=== PATIENT | female | born 1965 | race Caucasian/White ===

== ENCOUNTER 2023-07-20 22:49 | Emergency (ER) | payer BC ==
[2023-07-20 22:56] VITALS: BP 129/75; PULSE 67; RESP 16; TEMP 98.1; BMI 25.0
[2023-07-21] MEDS ORDERED: FAMOTIDINE 20 MG/50 ML IVPB 20 MG/50 ML MG IVPB ONE ×2 (00:35→00:38)
[2023-07-21 00:41] LABS: BASO % 1.4 % (0-2.0); EOS % 3.3 % (0-4.5); HEMATOCRIT 39.5 % (32.4-45.2); HEMOGLOBIN 13.4 GM/dL (10.7-15.3); LYMPH % 28.8 % (8-40); MCH 30.1 pg (25.7-33.7); MCHC 33.8 g/dl (32.0-36.0); MEAN CELL VOLUME 89.1 fl (80-96); MEAN PLT VOLUME 7.8 fl (7.5-11.1); MONO % 9.2 % (3.8-10.2); NEUT % 57.3 % (42.8-82.8); PLATELET COUNT 220 10^3/uL (134-434); RBC 4.44 M/mm3 (3.60-5.2); RDW 13.2 % (11.6-15.6); WHITE BLOOD COUNT 5.3 K/mm3 (4.0-10.0)
[2023-07-21 00:58] LABS: POTASSIUM 3.8 mmol/L (3.5-5.1)
[2023-07-21 01:00] LABS: CALCIUM 9.4 mg/dL (8.5-10.1)
[2023-07-21 01:01] LABS: ALBUMIN 3.8 g/dl (3.4-5.0); BLOOD UREA NITROGEN 15.2 mg/dL (7-18)
[2023-07-21 01:04] LABS: CREATININE 0.7 mg/dL (0.55-1.3)
[2023-07-21 01:05] LABS: BILIRUBIN,TOTAL 0.8 mg/dL (0.2-1)
[2023-07-21 01:06] LABS: TOT PROT 6.4 g/dl (6.4-8.2)
[2023-07-21] MEDS ORDERED: MAG HYDROX/AL HYDROX/SIMETH -MYLANTA- ORAL SUSPENSION PO ONE (01:22)
[2023-07-21] MEDS ORDERED: MAG HYDROX/AL HYDROX/SIMETH 30 ML UNIT-DOSE CUP ONE (01:22)
== END 2023-07-21 01:38 | disposition home or self-care (01) ==
LOC: FER 22:49
PROC: 3E033GC Introduction of Other Therapeutic Substance into Peripheral Vein, Percutaneous Approach (ICD-10-PCS; principal; 2023-07-21)
DX: R07.89 Other chest pain (principal); K20.90 Esophagitis, unspecified without bleeding; R06.02 Shortness of breath; R11.0 Nausea; R00.2 Palpitations
CPT/HCPCS: 36415; 80053; 84484; 85025; 93005; 99284-25